=== PATIENT | female | born 1990 | race Caucasian/White ===

== ENCOUNTER 2018-03-04 13:55 | Emergency (ER) | payer OTHER ==
[2018-03-04 14:27] VITALS: RESP 18; O2SAT 100; BMI 22.8
--- NOTE | 2018-03-04 14:30 | ED PDOC ---
Arrival/HPI - General Time Seen by Provider: 03/04/18 14:05 Historian: Patient - History of Present Illness Narrative History of Present Illness (Text): 03/04/18 14:24 A 27 year old female, whose past medical history includes chronic back pain on oxycodone 30 mg, presents to the emergency department complaining of nausea and because she was unable to take her pain medication this morning she feels like she's going through withdrawals. Patient notes a loss of appetite but denies any fever, chills, vomiting, diarrhea, chest pain, shortness of breath, cough or any other complaints. She has intermittent chronic abdominal pain as well. PMD: None Time/Duration: Other (today) Symptom Course: Unchanged Quality: Other Context: Home Past Medical History - Provider Review Nursing Documentation Reviewed: Yes - Past History Past History: No Previous - Infectious Disease Hx of Infectious Diseases: None - Psychiatric Hx Substance Use: No - Anesthesia Hx Anesthesia: No Family/Social History - Physician Review Nursing Documentation Reviewed: Yes Family/Social History: No Known Family HX Smoking Status: Unknown If Ever Smoked Hx Alcohol Use: No Hx Substance Use: No Allergies/Home Meds Allergies/Adverse Reactions: Allergies sulfamethoxazole [From Bactrim] Allergy (Verified 03/04/18 14:26) RASH trimethoprim [From Bactrim] Allergy (Verified 03/04/18 14:26) RASH Home Medications: Home Meds Medication Instructions Recorded Confirmed oxyCODONE [oxyCONTIN Extended 30 mg PO TID 03/04/18 03/04/18 Release Tab] Review of Systems - Physician Review All systems were reviewed & negative as marked: Yes - Review of Systems Constitutional: absent: Fevers, Night Sweats Respiratory: absent: SOB, Cough Cardiovascular: absent: Chest Pain Gastrointestinal: Abdominal Pain, Nausea. absent: Diarrhea, Vomiting Physical Exam Vital Signs Reviewed: Yes Vital Signs Temp Pulse Resp BP Pulse Ox 03/04/18 15:15 98 F 87 18 129/87 100 03/04/18 14:37 106 H 135/84 03/04/18 14:26 98.0 F 105 H 18 135/84 100 Temperature: Afebrile Blood Pressure: Normal Pulse: Tachycardic Respiratory Rate: Normal Appearance: Positive for: Well-Appearing, Non-Toxic, Comfortable. No: Other ( tremors) Pain Distress: None Mental Status: Positive for: Alert and Oriented X 3 - Systems Exam Head: Present: Atraumatic, Normocephalic Pupils: Present: PERRL (4mm) Extroacular Muscles: Present: EOMI Conjunctiva: Present: Normal Mouth: Present: Moist Mucous Membranes, Normal Tounge (no tongue fasciculations) Neck: Present: Normal Range of Motion Respiratory/Chest: Present: Clear to Auscultation, Good Air Exchange. No: Respiratory Distress, Accessory Muscle Use Cardiovascular: Present: Regular Rate and Rhythm, Normal S1, S2. No: Murmurs Abdomen: Present: Normal Bowel Sounds. No: Tenderness, Distention, Peritoneal Signs, Guarding Back: Present: Normal Inspection Upper Extremity: Present: Normal Inspection, NORMAL PULSES. No: Cyanosis, Edema , Other (tremors of hands, track regalado) Lower Extremity: Present: Normal Inspection, NORMAL PULSES. No: Edema Neurological: Present: GCS=15, CN II-XII Intact, Speech Normal Skin: Present: Warm, Dry, Normal Color. No: Rashes Psychiatric: Present: Alert, Oriented x 3, Normal Insight, Normal Concentration Medical Decision Making ED Course and Treatment: 03/04/18 14:24 Impression: A 27 year old female with nausea and chronic abdominal discomfort. Patient unable to take pain medication this morning and feels she is going through withdrawals. Differential Diagnosis included but are not limited to: Early opioid withdrawal Plan: -- Clonodine, Pepcid and Zofran -- Reassess and disposition Progress Notes: Medication ordered for symptom relief. Patient instructed to follow up with clinic and detox center. Patient medically cleared for discharge and release to custody. Patient will be cleared medically for discharge to police custody. - Medication Orders Current Medication Orders: Discontinued Medications Clonidine HCl (Catapres) 0.1 mg PO STAT STA Stop: 03/04/18 14:27 Last Admin: 03/04/18 14:37 Dose: 0.1 mg MAR Pulse and Blood Pressure Document 03/04/18 14:37 OCS (Rec: 03/04/18 14:38 OCS [id number]) Pulse Pulse Rate (60-90) 106 Blood Pressure Blood Pressure (100/60-150/90) 135/84 Famotidine (Pepcid) 20 mg PO STAT STA Stop: 03/04/18 14:27 Last Admin: 03/04/18 14:37 Dose: 20 mg Ondansetron HCl (Zofran Odt) 4 mg PO STAT STA Stop: 03/04/18 14:27 Last Admin: 03/04/18 14:38 Dose: 4 mg - Scribe Statement The provider has reviewed the documentation as recorded by the Lisa Miller Provider Scribe Attestation: All medical record entries made by the Scribe were at my direction and personally dictated by me. I have reviewed the chart and agree that the record accurately reflects my personal performance of the history, physical exam, medical decision making, and the department course for this patient. I have also personally directed, reviewed, and agree with the discharge instructions and disposition. Disposition/Present on Arrival - Present on Arrival Any Indicators Present on Arrival: No History of DVT/PE: No History of Uncontrolled Diabetes: No Urinary Catheter: No History Surgical Site Infection Following: None - Disposition Have Diagnosis and Disposition been Completed?: Yes Diagnosis: Opiate withdrawal Disposition: HOME/ ROUTINE Disposition Time: 15:00 Patient Plan: Discharge Condition: IMPROVED Discharge Instructions (ExitCare): Opioid Use Disorder Additional Instructions: Ms Bell, thank you for letting us take care of you today. Your provider was Dr. Sweet. You were treated for Opiate withdrawal. The emergency medical care you received today was directed at your acute symptoms. If you were prescribed any medication, please fill it and take as directed. It may take several days for your symptoms to resolve. Return to the Emergency Department if your symptoms worsen, do not improve, or if you have any other problems. PATIENT IS MEDICALLY CLEARED FOR DISCHARGE IN POLICY CUSTODY Please contact your doctor or call one of the physicians/clinics you have been referred to that are listed on the Patient Visit Information form that is included in your discharge packet. Bring any paperwork you were given at discharge with you along with any medications you are taking to your follow up visit. Our treatment cannot replace ongoing medical care by a primary care provider (PCP) outside of the emergency department. Thank you for allowing the [facility] team to be part of your care today. If you had an X-Ray or CT scan: A Radiologist will review the ED reading if any change in treatment is needed we will contact you. If you had a blood, urine, or wound culture: It will take several days for the results, if any change in treatment is needed we will contact you. If you had an STI test: It will take 48 hours for the results. Please call after 1 week if you have not heard back. Referrals: [facility] at [facility] [place] [Outside] - Follow up with primary
[2018-03-04 15:20] VITALS: BP 129/87; PULSE 87; TEMP 98
== END 2018-03-04 15:15 | disposition home or self-care (01) ==
LOC: ED 13:55
DX: F11.23 Opioid dependence with withdrawal (principal)